=== PATIENT | male | born 1970 | race Caucasian/White ===

== ENCOUNTER 2022-10-01 13:45 | Outpatient (RCR) | payer OTHER, SELFPAY | END 2022-12-17 10:24 | disposition home or self-care (01) | PROVIDERS: Visit Provider Orthopaedic Surgery Sports Medicine | DX: S93.492A Sprain of other ligament of left ankle, initial encounter (principal); Z51.89 Encounter for other specified aftercare | CPT/HCPCS: 97110; 97140; 97161; 97530 ==